=== PATIENT | female | born 1945 | race American Indian/Alaskan Native ===

== ENCOUNTER 2017-09-17 19:18 | Emergency (ER) | payer OTHER, MEDICARE ==
[2017-09-17 21:03] VITALS: BP 176/75
--- NOTE | 2017-09-17 21:10 | Cat Scan Report ---
FINAL REPORT PROCEDURE: CT HEAD/BRAIN WO CON TECHNIQUE: Computerized tomography of the head was performed without contrast material. HISTORY: head Injury COMPARISON: No prior studies are available for comparison. FINDINGS: Skull and scalp: Normal. Paranasal sinuses: Normal. Ventricles and subarachnoid spaces: Normal. Cerebrum: No evidence of hemorrhage, acute infarction or mass . Cerebellum and brainstem: No evidence of hemorrhage, acute infarction or mass. Vasculature: Normal. Comments: None. IMPRESSION: Normal Examination
--- NOTE | 2017-09-17 21:38 | Cat Scan Report ---
FINAL REPORT PROCEDURE: CT CERVICAL SPINE WO CON TECHNIQUE: Computerized tomography of the cervical spine was performed from the skull base to T1 without contrast material. HISTORY: fall injury COMPARISON: No prior studies are available for comparison. FINDINGS: Straightening of the cervical lordosis. No fracture. Odontoid process is intact. C1-2: No significant abnormality. C2-3: No significant abnormality. C3-4: No significant abnormality. C4-5: Disc bulge flattening the thecal sac. No canal stenosis or foraminal encroachment.. C5-6: Disc bulge with mild spurring. No canal stenosis or foraminal encroachment.. C6-7: Mild anterior spurring. No disc herniation. No canal stenosis or foraminal encroachment. C7-T1: No significant abnormality. Other: No additional findings. IMPRESSION: Mild degenerative change. No fracture seen..
--- NOTE | 2017-09-17 22:27 | Emergency Department Report ---
ED Head Trauma HPI - General Chief complaint: Head Injury Stated complaint: HEADACHE ABND LT SHOULDER PAIN Time Seen by Provider: 09/17/17 20:24 Source: patient Mode of arrival: Ambulatory Limitations: No Limitations - History of Present Illness Initial comments: Patient is a 72-year-old female who is presenting status post closed head injury. Patient states she slipped on wet floor at approximately 3 PM today at work. Patient states she fell forward hitting her left forehead and has some discomfort in left trapezius radiating to left shoulder. Patient states there was no loss of consciousness but she was dazed briefly. Patient states the pain is 10 out of 10 in severity. Patient was checked out at the clinic that she has to go to [facility] [employer]. and because of the head injury felt as though she CAT scan of the head was sent here. Patient denies any current nausea vomiting and vertigo. - Related Data Home Medications Medication Instructions Recorded Confirmed Last Taken Aspirin 81 mg PO DAILY 09/17/17 09/17/17 Unknown Coreg mg PO BID 09/17/17 Unknown Glimepiride mg PO DAILY 09/17/17 Unknown Losartan-Hctz 50-12.5 mg Tab 1 tab PO DAILY 09/17/17 09/17/17 Unknown Omeprazole mg PO DAILY 09/17/17 Unknown Pravastatin mg PO HS 09/17/17 Unknown Trulicity units SQ QWEEK 09/17/17 Unknown Previous Rx's Medication Instructions Recorded Last Taken Type HYDROcodone/ACETAMINOPHEN [[place] 1 each PO Q8HR #12 tablet 09/17/17 Unknown Rx 5-325 Tablet] methOCARBAMOL [Robaxin TAB] 500 mg PO Q6H PRN #12 tablet 09/17/17 Unknown Rx Allergies/Adverse reactions: Allergies Allergy/AdvReac Type Severity Reaction Status Date / Time Sulfa (Sulfonamide Allergy Anaphylaxis Verified 09/17/17 20:03 Antibiotics) ED Review of Systems ROS: Stated complaint: HEADACHE ABND LT SHOULDER PAIN Other details as noted in HPI Comment: All other systems reviewed and negative ED Past Medical Hx - Past Medical History Previous Medical History?: Yes Hx Hypertension: Yes Hx Diabetes: Yes Hx GERD: Yes Additional medical history: High Cholesterol - Surgical History Past Surgical History?: Yes Additional Surgical History: Left shoulder and left foot - Social History Smoking Status: Never Smoker Substance Use Type: None - Medications Home Medications: Home Medications Medication Instructions Recorded Confirmed Last Taken Type Aspirin 81 mg PO DAILY 09/17/17 09/17/17 Unknown History Coreg mg PO BID 09/17/17 Unknown History Glimepiride mg PO DAILY 09/17/17 Unknown History HYDROcodone/ACETAMINOPHEN [[place] 1 each PO Q8HR #12 tablet 09/17/17 Unknown Rx 5-325 Tablet] Losartan-Hctz 50-12.5 mg Tab 1 tab PO DAILY 09/17/17 09/17/17 Unknown History Omeprazole mg PO DAILY 09/17/17 Unknown History Pravastatin mg PO HS 09/17/17 Unknown History Trulicity units SQ QWEEK 09/17/17 Unknown History methOCARBAMOL [Robaxin TAB] 500 mg PO Q6H PRN #12 tablet 09/17/17 Unknown Rx ED Physical Exam - General Limitations: No Limitations General appearance: alert, in no apparent distress - Head Head exam: Present: normocephalic. Absent: atraumatic - Eye Eye exam: Present: normal appearance - ENT ENT exam: Present: mucous membranes moist - Neck Neck exam: Present: normal inspection - Respiratory Respiratory exam: Present: normal lung sounds bilaterally. Absent: respiratory distress - Cardiovascular Cardiovascular Exam: Present: regular rate, normal rhythm. Absent: systolic murmur, diastolic murmur, rubs, gallop - GI/Abdominal GI/Abdominal exam: Present: soft, normal bowel sounds - Extremities Exam Extremities exam: Present: normal inspection - Back Exam Back exam: Present: normal inspection - Neurological Exam Neurological exam: Present: alert, oriented X3 - Psychiatric Psychiatric exam: Present: normal affect, normal mood - Skin Skin exam: Present: warm, dry, intact, normal color. Absent: rash ED Course Vital Signs 09/17/17 09/17/17 09/17/17 19:53 21:02 21:03 Temperature 98.9 F Pulse Rate 78 75 Respiratory 18 18 Rate Blood Pressure 182/79 Blood Pressure 176/75 [Left] O2 Sat by Pulse 100 99 Oximetry - Radiology Data Radiology results: report reviewed (patient's head CT was within normal limits CT of the C-spine also within normal limits except for some degenerative changes but there are no acute process. The patient's left shoulder x-ray shows no fracture.) - Medical Decision Making Patient is a 72-year-old female who slipped fell and hit her head. Patient has imaging studies that show no acute process and the patient be discharged home at this time. Critical care attestation.: If time is entered above; I have spent that time in minutes in the direct care of this critically ill patient, excluding procedure time. ED Disposition Clinical Impression: Musculoskeletal pain Concussion Qualifiers: Encounter type: initial encounter Loss of consciousness presence/duration: without LOC Qualified Code(s): S06.0X0A - Concussion without loss of consciousness, initial encounter Disposition: TO HOME OR SELFCARE Is pt being admited?: No Does the pt Need Aspirin: No Condition: Stable Instructions: Concussion (ED) Prescriptions: HYDROcodone/ACETAMINOPHEN [[place] 5-325 Tablet] 1 each PO Q8HR #12 tablet methOCARBAMOL [Robaxin TAB] 500 mg PO Q6H PRN #12 tablet PRN Reason: Pain Referrals: ADDY CISNEROS MD [Primary Care Provider] - 3-5 Days
--- NOTE | 2017-09-18 00:02 | XRay Report ---
FINAL REPORT EXAM: XR SHOULDER 2+V LT HISTORY: fall. Left shoulder injury TECHNIQUE: Three views of the left shoulder were submitted. FINDINGS: There is no evidence of fracture or soft tissue injury. The glenohumeral and AC joints appear intact. The subacromial space appears normal. Soft tissues well maintained. IMPRESSION: No acute process identified.
== END 2017-09-17 22:38 | disposition home or self-care (01) ==
LOC: ED 19:18
DX: S06.0X0A Concussion without loss of consciousness, initial encounter (principal); I10 Essential (primary) hypertension; E11.9 Type 2 diabetes mellitus without complications; K21.9 Gastro-esophageal reflux disease without esophagitis; E78.00 Pure hypercholesterolemia, unspecified; Z79.82 Long term (current) use of aspirin; Z88.2 Allergy status to sulfonamides; W18.30XA Fall on same level, unspecified, initial encounter; Y93.89 Activity, other specified; Y92.89 Other specified places as the place of occurrence of the external cause; Y99.8 Other external cause status
CPT/HCPCS: 70450; 72125; 99284